=== PATIENT | male | born 1955 | race Two or more races ===

== ENCOUNTER → 2024-08-25 | Outpatient (BNVA) | payer MEDICAID, SELFPAY | END | disposition home or self-care (01) | PROVIDERS: PCP Internal Medicine Pulmonary Disease; Referring Provider Internal Medicine Pulmonary Disease; Visit Provider Urology | DX: C61 Malignant neoplasm of prostate (principal); N39.3 Stress incontinence (female) (male); N52.9 Male erectile dysfunction, unspecified; Z90.79 Acquired absence of other genital organ(s) | CPT/HCPCS: 81003; 99212; G0463 ==

== ENCOUNTER 2024-10-27 10:55 | Day surgery (SDC) | payer MEDICAID, SELFPAY ==
--- NOTE | 2024-10-23 06:28 | EKG_ITS ---
[facility] Test Date: 2024-10-23 Pat Name: GUS SHETH Department: Room: - Gender: Male Can Slider: PATRICIA : 1955 Requested By: Martha Salinas Order Number: [id number] Reading MD: Martha Salinas Measurements Intervals [place] Rate: 68 P: 50 RI: 149 QRS: 53 QRSD: 101 T: 71 QT: 364 QTc: 390 Interpretive Statements SINUS RHYTHM No previous ECG available for comparison /store/S0/[id number].pdf
[2024-10-23 09:14] VITALS: BMI 29.0
[2024-10-23 10:39] LABS: Basophils % (Auto) 0 % (0-2.5); Eosinophils # (Auto) 0.2 Thou/mm3 (0.0-0.5); Eosinophils % (Auto) 2 % (0-10); Hematocrit 37.6 % (41.0-53.0); Hemoglobin 12.3 g/dL (13.5-16.0); Immature Granulocytes % (Auto) 0 % (0-0); Immature Granulocytes Auto 0.03 Thou/mm3 (0.00-0.00); Lymphocytes # (Auto) 2.8 Thou/mm3 (1.0-4.8); Lymphocytes % (Auto) 34 % (10-50); Mean Corpuscular HGB Conc 32.7 g/dl (31.0-37.0); Mean Corpuscular Volume 86 fL (80-100); Monocytes # (Auto) 0.8 Thou/mm3 (0.0-0.8); Monocytes % (Auto) 10 % (0-12); Neutrophils # (Auto) 4.3 Thou/mm3 (1.8-7.7); Neutrophils % (Auto) 53 % (37-80); Nucleated Red Blood Cell % 0 /100 WBC (0); Platelet Count 235 Thou/mm3 (140-440); RDW Standard Deviation 47.6 fL (35.1-43.9); White Blood Count 8.1 Thou/mm3 (3.8-10.6)
[2024-10-23 11:03] LABS: Alanine Aminotransferase 12 U/L (10-49); Albumin, Serum 4.8 gm/dL (3.4-4.8); Albumin/Globulin Ratio 1.5 (1.2-2.2); Alkaline Phosphatase 96 U/L (46-116); Anion Gap 8 (7-16); Aspartate Amino Transferase 15 U/L (0-34); BUN/Creatinine Ratio 14 Ratio (12-20); Bilirubin,Total 0.2 mg/dL (0.3-1.2); Blood Urea Nitrogen 21 mg/dL (9-23); Calcium 9.8 mg/dL (8.3-10.6); Calcium (Corrected) 9.8 mg/dL (8.5-10.1); Carbon Dioxide 27.7 mMol/L (20.0-31.0); Chloride 104 mMol/L (98-107); Creatinine (Component) 1.5 mg/dL (0.6-1.3); Estimated Creatinine Clearance 49.9 mL/min (>60); Globulin 3.2 gm/dL (2.3-3.5); Glucose 126 mg/dL (74-106); Osmolality,Calculated 284 (275-295); Potassium 4.6 mMol/L (3.4-5.1); Sodium 140 mMol/L (136-145); eGFR 49 See Note
--- NOTE | 2024-10-26 13:57 | SUR.PREOP ---
Pt's son notified to bring pt at 1245 tomorrow for surgery.
--- NOTE | 2024-10-26 15:44 | SUR.PREOP ---
Cardiac records reviewed with Dr Gómez.
[2024-10-27] VITALS (11 sets, daily range): BP systolic 124–149; BP diastolic 79–93; PULSE 59–72; RESP 10–19; TEMP 36.8–37.1; O2SAT 96–100; BMI 28.8
--- NOTE | 2024-10-27 14:37 | PD.SUROPNT ---
Date of Procedure 10/27/24 Pre Op Diagnosis Symptomatic cholelithiasis Post Op Diagnosis Cholelithiasis with cholecystitis Procedure Laparoscopic cholecystectomy Findings Mildly distended gallbladder with multiple gallstones and chronic cholecystitis. Anterior surface of the liver was smooth without nodules or any lesions. Procedure Description Patient was brought into the operating room in supine position. After administration of general endotracheal anesthesia abdomen was prepped and draped in standard surgical manner. A Veress needle was inserted through the umbilicus and pneumoperitoneum was obtained up to 15 mmHg. The Veress needle was then removed, a 5 mm infraumbilical incision was made and the 5mm trocar was inserted. Laparoscopic camera was placed. Under direct visualization a laparoscopic camera a 10 mm trocar was placed in subxiphoid and two 5 mm trocars placed in right upper quadrant. The anterior surface of the liver was smooth without nodules or any lesions. The gallbladder was identified and was noted to be mildly distended with multiple gallstones and chronic cholecystitis. It was retracted cephalad and laterally. Dissection started near the infundibulum of gallbladder where cystic duct and gallbladder junction clearly identified. The cystic duct was circumferentially dissected off the peritoneum and surrounding inflammatory tissue. The critical view of safety was clearly demonstrated. Cystic duct was then divided between 2 endoclips proximally and one distally. The cystic artery was similarly dissected and divided. The gallbladder was then from the liver bed using electrocautery. The gallbladder was then placed inside an Endo Catch and removed from the abdomen utilizing subxiphoid trocar site. The area was copiously and thoroughly washed and irrigated, all the fluid was suctioned and the suction fluid returned clear. Hemostasis achieved using electrocautery. Endoclips noted be in place and intact without any bleeding or any leakage. Hemostasis was adequate and satisfactory. The subxiphoid trocar sites fascial defect was closed with 0 Vicryl using Endo Closure device. Instruments and trocars removed, pneumoperitoneum was evacuated and the incisions closed with 4-0 Monocryl in subcuticular fashion. Instrument needle and sponge counts were all reported to be correct X2. Patient tolerated the procedure well, was extubated, breathing spontaneously and without difficulty and was transferred to postanesthesia care in stable condition. Anesthesia GETA and local Pathology / specimen Other (Gallbladder and contents) Estimated Blood Loss 10 Condition Stable Disposition PACU Surgeon Martha Salinas MD Surgical Staff Operation Date: 10/27/24 15:00 Case Staff Anesthesiologist: Dino Gómez RNenvelope machine operator: Jayleen Easley
--- NOTE | 2024-10-27 15:12 | SUR.PHASEI ---
1444: Pt received in [facility] via gurney. Report from Grace FERNANDO and Dr. Gómez. Pt groggy. Easily aroused then drifts back to sleep. Resp even, unlabored. VS stable. Surgical sites x4 to adbdomen secured with dermabond. No abnormal swelling, discoloration, hematoma. No c/o pain. 1514: Pt has been resting with no complaints voiced. Resp even, unlabored. VS stable. Surgical sites remain dry, clean, intact with no swelling, hematoma.
[2024-10-27] MEDS: fentaNYL CIT INJ 50 mCg/ML AMP 2ML IV ×2 (15:34→15:55)
--- NOTE | 2024-10-27 16:45 | SUR.PHASEII ---
1514: Pt resting with eyes closed. Son at bedside to interpret for pt. 1534: Pt awake with c/o pain to abdomen. Rates pain level 8/10. VS stable. Resp even, unlabored. Pain medication given per order. 1555: Pt still has c/o pain to abdomen. Rates pain level 7/10. VS stable. Resp even, unlabored. Pain medication per order. 1600: Pt stated pain level down and is much more tolerable. VS stable. Resp even, unlabored. Pt sitting up tolerating po fluids with no difficulty swallowing and no n/v. 1625: Pt fully awake, oriented x3. VS stable. States pain level very tolerable. Pt dressed and assisted to transport chair. Ambulation steady. Pt requested son interpret for him. Both stated understanding of discharge instructions. Pt also instructed to pick out hand his prescription at his pharmacy. Pt discharged from [facility] in stable condition.
== END 2024-10-27 16:25 | disposition home or self-care (01) ==
PROVIDERS: PCP Internal Medicine Pulmonary Disease; Referring Provider Surgery; Visit Provider Surgery
PROC: 0FT44ZZ Resection of Gallbladder, Percutaneous Endoscopic Approach (ICD-10-PCS; CPT 47562; principal; 2024-10-27 14:45)
DX: K80.10 Calculus of gallbladder with chronic cholecystitis without obstruction (principal)
CPT/HCPCS: 47562; 36415; 80053; 85025; 93005; A4217; A4649; J0131; J0694; J1100; J2405; J2704; J3010; J3490; J1805